=== PATIENT | male | born 1980 | race Caucasian/White ===

== ENCOUNTER 2023-08-01 12:29 | Outpatient (CLI) | payer OTHER, SELFPAY ==
--- NOTE | ~2023-08-01 | US_ITS ---
EXAMINATION: US scrotum doppler DATE: 08/01/2023 12:57 INDICATION: Right scrotal pain TECHNIQUE: Testicular sonogram utilizing grayscale and Doppler COMPARISON: None. FINDINGS: The right testis measures 4.3 x 2.9 x 2.1 cm. The left testis measures 4.0 x 2.8 x 2.3 cm. There is normal vascular flow to both testes. The right epididymis is normal with normal vascular diamond w. The left epididymis is normal with normal vascular flow. There is no varicocele or hydrocele. IMPRESSION: 1. No sonographic correlate for the patient's symptoms. Reviewed, dictated and finalized at location [facility]. [facility]
== END 2023-08-01 12:30 | disposition home or self-care (01) ==
LOC: CHSIMG 12:33
PROVIDERS: PCP Internal Medicine; Visit Provider Nurse Practitioner Family
DX: N50.82 Scrotal pain (principal); R10.31 Right lower quadrant pain
CPT/HCPCS: 76870; 93976